=== PATIENT | female | born 2005 | race Two or more races ===

== ENCOUNTER 2024-03-30 20:36 | Emergency (ER) | payer MEDICAID, SELFPAY ==
[2024-03-30 20:37] VITALS: BMI 19.3
[2024-03-30 20:57] VITALS: BP 105/69; PULSE 71; RESP 16; TEMP 36.9; O2SAT 100
--- NOTE | 2024-03-30 21:07 | EDNOTE_ITS ---
<Statement entered by Meri Angel MD - 03/30/24 22:03> As co-signing physician, I was present and available for consult prn. I concur with the plan and care as documented by the midlevel provider. ED Extremity Problem RME/HPI General Chief complaint: Extremity Problem,Nontraumatic Stated complaint: LEFT ARM PROBLEM Time Seen by Provider: 03/30/24 20:46 Arrival date/time: 03/30/24 20:36 19-year-old female reports with complaints of left arm pain x 1 day. Patient states that she was dancing a lot over the weekend and she is uncertain if that is the cause but when she took a nap this afternoon she awoke with some heaviness in short-term numbness in the arm the lead to some mild pain numbness has resolved no tingling no decreased range of motion. Patient states that she does notice pain with elevation of the shoulder. Patient has not take any medications for symptoms Limitations: no limitations Related Data Home Medications ?Medication ?Instructions ?Recorded ?Confirmed No Known Home Medications 02/17/21 02/17/21 Allergies Allergy/AdvReac Type Severity Reaction Status Date / Time No Known Allergies Allergy Verified 03/30/24 20:39 Review of Systems Constitutional Constitutional: Denies chills and Denies fever(s) Musculoskeletal Musculoskeletal: Reports arthralgias, Denies deformity, Denies joint swelling, Reports numbness and Denies tingling Integumentary/Breasts Skin/Breast: Denies unusual bruising and Denies wounds Neurologic Neurologic: Reports numbness and Denies tingling Hematologic/Lymphatic Hematologic/Lymphatic: Denies easy bleeding and Denies easy bruising Past Medical History Past Medical History CARDIAC: Negative Congestive Heart Failure RESPIRATORY: Negative Chronic Obstructive Pulmonary Disease (COPD) GENITOURINARY: Negative Renal Disease ENDOCRINE: Negative Diabetes Mellitus Type 1 or Diabetes Mellitus Type 2 Social History SMOKING STATUS: Never smoker ED Exam General Limitations: Present no limitations General appearance: Present alert and in no apparent distress Expanded Upper Extremity Exam Shoulder exam: Present normal inspection, full ROM and tenderness (Left subacromial bursa); Absent swelling, ecchymosis, deformity, crepitus, dislocation or tenderness over AC joint Arm exam: Present normal inspection and full ROM Elbow exam: Present normal inspection and full ROM Forearm/Wrist exam: Present normal inspection and full ROM Hand exam: Present normal inspection and full ROM Neuromotor exam: Normal thumb adduction and fingers 2-5 abduction Vascular exam: Normal capillary refill, radial pulse, ulnar pulse and brachial pulse Back Exam Back exam: Present normal inspection and full ROM Neurological Exam Neurological exam: Present alert, oriented X3 and CN II-XII intact Psychiatric Psychiatric exam: Present normal affect and normal mood Skin Skin exam: Present warm, dry, intact and normal color Course Course Course Narrative: 19-year-old female reports with complaints of left shoulder and arm discomfort. Patient is neurovascular exam normal differential diagnosis includes shoulder strain bursitis, and radiculopathy from sleeping positions. Patient is stable nontoxic pain with stable vital signs she is advised on [id number] medications and hydrating following up with her primary care provider if no improvement in 3 days Quality Measures none Vital Signs Vital signs: Vital Signs Temperature 98.5 F 03/30/24 20:57 Pulse Rate 71 03/30/24 20:57 Respiratory Rate 16 03/30/24 20:57 Blood Pressure 105/69 03/30/24 20:57 Pulse Oximetry (%) 100 03/30/24 20:57 Oxygen Delivery Method Room Air 03/30/24 20:57 Extremity Problem Patient data External records reviewed:: None Clinical information provided by:: patient Social determinants that could affect healthcare access:: none Patient has the following chronic illnesses:: none How is presenting disease/condition affected by chronic disease/condition?: no chronic disease Evaluation data The following diagnostics were reviewed and interpreted by me:: other (specify) (none) Lab and/or radiology exams considered but not ordered:: none Interpretation Summary: n/a Medications / Prescriptions Medications or Prescriptions considered but not ordered:: n/a Medication administrations:: n/a Consultations Consultation(s) initiated? (list below): No Diagnosis Most likely diagnosis given after review of the tests above:: Left shoulder sprain/strain Admission Indicated Admission indicated?: not indicated Admission Request Was there a request for admission?: No Disposition Plan Disposition Plan: Discharge Discharge Attestation Discharge Attestation: The patient and all family members were given an opportunity to ask questions and understood the discharge instructions. Discharge instructions specifically effects, indications for sooner follow up or return to the emergency department, and the expected course of current diagnosis. Patient condition: Stable Discharge Plan Plan Patient Disposition: HOME (Self Care) Prescriptions/Referrals Prescriptions/Med Rec: No Action No Known Home Medications Problem List Clinical Impression: Sprain of left shoulder Patient/Caregiver Discharge Instructions Discharge Activity: activity as tolerated Education Materials: Self-Care for Strains and Sprains, ED Shoulder Sprain Additional Instructions: Apply ice to the area with a towel for 20 minutes 2 or 3 times a day to help you may put medication such as IcyHot in the area or you may take medication such as ibuprofen or Tylenol for pain. Follow-up to primary care provider if no improvement in 4 days Print Language: [place] Stand Alone Forms: Sarita Award Info., Patient Portal Info Letter
== END 2024-03-30 21:21 | disposition home or self-care (01) ==
PROVIDERS: Emergency Provider Emergency Medicine; PCP Family Medicine
DX: S43.402A Unspecified sprain of left shoulder joint, initial encounter (principal); X58.XXXA Exposure to other specified factors, initial encounter
CPT/HCPCS: 99281